=== PATIENT | female | born 1970 | race African-American/Black ===

== ENCOUNTER 2023-06-16 08:56 | Emergency (ER) | payer BC ==
[~2023-06-16] VITALS: Ht 149.9 cm; Wt 85.0 kg
[2023-06-16 09:08] VITALS: BP 170/99; PULSE 81; RESP 18; TEMP 98.6; O2SAT 99
== END 2023-06-16 09:59 | disposition home or self-care (01) ==
LOC: ER 08:56
DX: H11.31 Conjunctival hemorrhage, right eye (principal); I10 Essential (primary) hypertension; Z68.30 Body mass index [BMI] 30.0-30.9, adult; Z90.710 Acquired absence of both cervix and uterus; Z88.5 Allergy status to narcotic agent
CPT/HCPCS: 99281